=== PATIENT | male | born 1965 | race Caucasian/White ===

== ENCOUNTER 2017-07-05 18:54 | Emergency (ER) | payer SELFPAY ==
--- NOTE | 2017-07-05 19:34 | C.PDOC ---
History Of Present Illness 51 y/o male presents to the ED c/o a throbbing headache for the past 2 days. Patient reports having an increase in blood pressure. The patient denies nausea , vomiting, diarrhea, and dizziness. Time Seen by Provider: 07/05/17 19:34 Chief Complaint (Nursing): Headache History Per: Patient History/Exam Limitations: no limitations Onset/Duration Of Symptoms: Days Current Symptoms Are (Timing): Still Present Past Medical History Reviewed: Historical Data, Nursing Documentation, Vital Signs Vital Signs: Last Vital Signs Temp 97.8 F 07/05/17 20:50 Pulse 62 07/05/17 20:50 Resp 13 07/05/17 20:50 BP 124/81 07/05/17 20:50 Pulse Ox 98 07/05/17 20:50 - Medical History PMH: HTN Surgical History: No Surg Hx Family History: States: No Known Family Hx - Social History Hx Alcohol Use: Yes Hx Substance Use: No - Immunization History Hx Tetanus Toxoid Vaccination: No Hx Influenza Vaccination: No Hx Pneumococcal Vaccination: No Review Of Systems Except As Marked, All Systems Reviewed And Found Negative. Constitutional: Negative for: Fever, Chills Cardiovascular: Negative for: Chest Pain Respiratory: Negative for: Shortness of Breath Gastrointestinal: Negative for: Nausea, Vomiting Genitourinary: Negative for: Dysuria Musculoskeletal: Negative for: Back Pain Skin: Negative for: Rash Neurological: Positive for: Headache. Negative for: Weakness Psych: Positive for: Anxiety Physical Exam - Physical Exam Appears: Non-toxic, No Acute Distress Skin: Warm, Dry Head: Normacephalic Eye(s): bilateral: Normal Inspection, PERRL, EOMI Oral Mucosa: Moist Neck: Supple Chest: Symmetrical Cardiovascular: Rhythm Regular Respiratory: No Rales, No Rhonchi Gastrointestinal/Abdominal: Soft, No Tenderness, No Guarding, No Rebound Back: No CVA Tenderness Extremity: Normal ROM Extremity: Bilateral: Atraumatic, Normal Color And Temperature Neurological/Psych: Oriented x3, Normal Speech, Normal Cognition Gait: Steady ED Course And Treatment - Laboratory Results Result Diagrams: 07/05/17 19:56 07/05/17 19:56 O2 Sat by Pulse Oximetry: 100 (RA) Progress Note: The patient received a CT Scan, IV fluids, UA, and bloodwork. The patient was administered Toradol, and Zofran. Medical Decision Making Medical Decision Making: Upon provider reevaluation patient is feeling better, is medically stable, and requires no further treatment in the ED at this time. Patient will be discharged home . Counseling was provided and all questions were answered regarding diagnosis and need for follow up with the referred clinic. There is agreement to discharge plan. Return if symptoms persist or worsen. Disposition Counseled Patient/Family Regarding: Studies Performed, Diagnosis, Need For Followup - Disposition Referrals: [facility] [Outside] [facility] [Outside] Disposition: HOME/ ROUTINE Disposition Time: 19:34 Condition: FAIR Additional Instructions: Please return if symptoms recur Instructions: Acute Headache (DC) Forms: CS-Keys (Jamaican) - Clinical Impression Clinical Impression: Headache - Scribe Statement The provider has reviewed the documentation as recorded by the Scribtoribio Ortega All medical record entries made by the Elmoibtoribio were at my direction and personally dictated by me. I have reviewed the chart and agree that the record accurately reflects my personal performance of the history, physical exam, medical decision making, and the department course for this patient. I have also personally directed, reviewed, and agree with the discharge instructions and disposition.
[2017-07-05 20:02] LABS: BASO # 0.1 K/uL (0.0-0.2); BASO % 0.7 % (0.0-2.0); EOS # 0.2 K/uL (0.0-0.7); EOS % 2.8 % (0.0-4.0); HEMATOCRIT 48.3 % (35.0-51.0); LYMPH # 1.6 K/uL (1.0-4.3); LYMPH % 20.5 % (20.0-40.0); MEAN CELL VOLUME 85.3 fL (80.0-94.0); MEAN CORPUSCULAR HEMOGLOBIN 28.9 pg (27.0-31.0); MEAN CORPUSCULAR HGB CONC 33.8 g/dL (33.0-37.0); MEAN PLATELET VOLUME 8.6 fL (7.2-11.7); MONO # 0.7 K/uL (0.0-0.8); MONO % 9.6 % (0.0-10.0); RED CELL DISTRIBUTION WIDTH 14.2 % (11.5-14.5); WHITE BLOOD COUNT 7.7 K/uL (4.8-10.8)
[2017-07-05 20:13] LABS: ALB/GLOB RATIO 1.5 (1.0-2.1); ALKALINE PHOSPHATASE 72 U/L (38-126); ALT/SGPT 40 U/L (21-72); AST/SGOT 27 U/L (17-59); BILIRUBIN,TOTAL 0.7 mg/dL (0.2-1.3); BLOOD UREA NITROGEN 21 mg/dL (9-20); CALCIUM 8.9 mg/dl (8.6-10.4); CARBON DIOXIDE 25 mmol/L (22-30); CHLORIDE 101 mmol/L (98-107); GFR AFRICAN-AMERICAN > 60; GLUCOSE,RANDOM 95 mg/dL (75-110); POTASSIUM 4.6 mmol/L (3.6-5.2); SODIUM 140 mmol/L (132-148); TOTAL PROTEIN 7.3 g/dL (6.3-8.3)
[2017-07-05 20:42] LABS: RBC URINE < 1 /hpf (0-3); URINE BACTERIA RARE (<OCC); URINE BILIRUBIN NEGATIVE (NEGATIVE); URINE BLOOD NEGATIVE (NEGATIVE); URINE COLOR Yellow (YELLOW); URINE GLUCOSE (UA) NORMAL (Normal); URINE KETONE NEGATIVE (NEGATIVE); URINE LEUKOCYTE ESTERASE NEG Leu/uL (Negative); URINE PROTEIN NEGATIVE (NEGATIVE); URINE UROBILINOGEN NORMAL mg/dL (0.2-1.0); WBC URINE 1 /hpf (0-5)
[2017-07-05 21:31] VITALS: BP 117/70; PULSE 67; RESP 14; TEMP 98; O2SAT 100
--- NOTE | 2017-07-06 08:56 | CT ---
PROCEDURE: CT HEAD WITHOUT CONTRAST. HISTORY: Headache COMPARISON: None available. TECHNIQUE: Axial computed tomography images were obtained through the head/brain without intravenous contrast. Radiation dose: Total exam DLP = 924.78 mGy-cm. This CT exam was performed using one or more of the following dose reduction techniques: Automated exposure control, adjustment of the mA and/or kV according to patient size, and/or use of iterative reconstruction technique. FINDINGS: HEMORRHAGE: No intracranial hemorrhage. BRAIN: No mass effect or edema. No atrophy or chronic microvascular ischemic changes. VENTRICLES: Unremarkable. No hydrocephalus. CALVARIUM: Unremarkable. PARANASAL SINUSES: Mild chronic ethmoid and sphenoid sinusitis. MASTOID AIR CELLS: Unremarkable as visualized. No inflammatory changes. OTHER FINDINGS: None. IMPRESSION: No intracranial mass, hemorrhage or evidence of acute infarct. Mild chronic paranasal sinusitis. Preliminary interpretation of this examination was reported by [facility] at 8:30 p.m. on 07/05/2017. There is concurrence of this report with the preliminary interpretation.
== END 2017-07-05 21:39 | disposition home or self-care (01) ==
LOC: C.ER 18:54
DX: R51 Headache (principal)
CPT/HCPCS: 70450; 80053; 81001; 85025; 96374; 96375; 99285; J1885; J2405

== ENCOUNTER 2018-01-11 19:13 | Emergency (ER) | payer OTHER ==
[2018-01-11 19:20] VITALS: RESP 20; O2SAT 97
[2018-01-11] MEDS ORDERED: Lidocaine 5% Patch TD STA (20:08)
[2018-01-11] MEDS ORDERED: Lidocaine 5% Patch TD ONE (20:22)
--- NOTE | 2018-01-11 20:44 | C.PDOC ---
History Of Present Illness 52 year old male presents to the ED for evaluation of right lower back pain that radiates down his right leg which began 1 week ago. Patient states pain is worse with sitting. He took two Advils at home without relief. Patient denies saddle anesthesia, urinary/bowel incontinence, numbness/weakness. Time Seen by Provider: 01/11/18 19:53 Chief Complaint (Nursing): Lower Extremity Problem/Injury Past Medical History Vital Signs: Last Vital Signs Temp 98.2 F 01/11/18 20:48 Pulse 63 01/11/18 20:48 Resp 20 01/11/18 20:48 BP 145/91 H 01/11/18 20:48 Pulse Ox 97 01/11/18 22:13 - Medical History PMH: HTN - Social History Hx Alcohol Use: Yes Hx Substance Use: No - Immunization History Hx Tetanus Toxoid Vaccination: No Hx Influenza Vaccination: No Hx Pneumococcal Vaccination: No Review Of Systems Musculoskeletal: Positive for: Back Pain (right, lower ) Neurological: Negative for: Weakness, Numbness Physical Exam - Physical Exam Appears: Non-toxic, No Acute Distress, Other (uncomfortable ) Skin: Normal Color, Warm, Dry Head: Atraumatic, Normacephalic Eye(s): bilateral: Normal Inspection Oral Mucosa: Moist Neck: Supple Chest: Symmetrical, No Deformity, No Tenderness Cardiovascular: Rhythm Regular, No Murmur Respiratory: Normal Breath Sounds, No Rales, No Rhonchi, No Wheezing Back: Other (sciactic notch and lumbar tenderness ) Extremity: Normal ROM, Capillary Refill (less than 2 seconds ) Neurological/Psych: Oriented x3, Normal Speech, Normal Cognition Gait: Steady ED Course And Treatment O2 Sat by Pulse Oximetry: 97 (on RA) Pulse Ox Interpretation: Normal Medical Decision Making Medical Decision Making: Progress: Lidoderm TD and Toradol IM administered. pt more comfortable, able to ambulate easily. d/c home with nsaids, muscle relaxant. f/u pmd Disposition Counseled Patient/Family Regarding: Diagnosis, Need For Followup, Rx Given - Disposition Disposition: HOME/ ROUTINE Disposition Time: 20:46 Condition: IMPROVED Additional Instructions: Please take ibuprofen as prescribed (with food). Take muscle relaxant at bedtime. Follow up with your primary care doctor this week; recommend referral to physical therapy. Take patch off back 8in 11 hours. Prescriptions: Cyclobenzaprine [Cyclobenzaprine HCl] 10 mg PO HS #7 tab Ibuprofen [Motrin] 600 mg PO TID #30 tab Instructions: Sciatica (DC), Sciatica Exercises Forms: Gen Discharge Inst [place], [employer] ([place]) Print Language: LITHUANIAN - Clinical Impression Clinical Impression: Sciatica of right side - PA / [employer] / Resident Statement MD/DO has reviewed & agrees with the documentation as recorded. - Scribe Statement The provider has reviewed the documentation as recorded by the Scribe (Cari Rinaldi) All medical record entries made by the Scribe were at my direction and personally dictated by me. I have reviewed the chart and agree that the record accurately reflects my personal performance of the history, physical exam, medical decision making, and the department course for this patient. I have also personally directed, reviewed, and agree with the discharge instructions and disposition.
[2018-01-11 20:49] VITALS: BP 145/91; PULSE 63; TEMP 98.2
== END 2018-01-11 21:00 | disposition home or self-care (01) ==
LOC: C.ER 19:13
DX: M54.31 Sciatica, right side (principal)
CPT/HCPCS: 96372; 99284; J1885